=== PATIENT | male | born 1990 | race Caucasian/White ===

== ENCOUNTER 2023-09-05 22:23 | Emergency (ER) | payer MEDICAID, OTHER ==
[~2023-09-05] VITALS: Ht 182.9 cm; Wt 73.2 kg
[2023-09-05 22:43] VITALS: BP 129/69; PULSE 100; RESP 14; TEMP 98.5; O2SAT 99
[2023-09-06] MEDS ORDERED: TETANUS, DIPHTHERIA, PERTUSSIS VAC/PF 0.5ML (>10YR OLD) IM ONE (00:45)
[2023-09-06] MEDS ORDERED: IBUPROFEN 600MG TABLET PO ONE (00:45)
[2023-09-06] MEDS ORDERED: BACITRACIN ZINC OINT UDPKT TOP ONE (00:45)
[2023-09-06] MEDS ORDERED: IBUP-2029 PO (01:45)
[2023-09-06] MEDS ORDERED: LIDOCAINE HCL/PF 1% 10 MG/ML 5ML VIAL INFIL ONE (01:45)
[2023-09-06] MEDS ORDERED: CEPH500C2 MT (01:45)
[2023-09-06] MEDS ORDERED: CEFTRIAXONE SODIUM 1 G/VIAL IM ONE (01:45)
[2023-09-06] MEDS ORDERED: DOXY100T28 MT (01:45)
== END 2023-09-06 01:41 | disposition home or self-care (01) ==
LOC: ER 22:35
DX: L03.113 Cellulitis of right upper limb (principal)
CPT/HCPCS: 99283